=== PATIENT | female | born 1970 | race Caucasian/White ===

== ENCOUNTER 2017-03-25 16:59 | Emergency (ER) | payer OTHER ==
[~2017-03-25] VITALS: Ht 160 cm; Wt 77.7 kg
[~2017-03-25 16:59] MED LIST: CLOP75TA14 PO
[2017-03-25 17:13] VITALS: BP 164/92; PULSE 64; RESP 15; O2SAT 100
[2017-03-25 17:40] VITALS: BP 135/83; PULSE 62; RESP 15; O2SAT 97
--- NOTE | 2017-03-25 17:40 | DRSVH ---
PROCEDURE: CT BRAIN TPA INDICATIONS: Stroke TECHNIQUE: Noncontrast 4.5 mm thick angled axial sections acquired from the foramen magnum to the vertex, with c oronal reformats. COMPARISON: [facility], CT, BRAIN W/O CONTRAST, 11/19/2012, 16:40. FINDINGS: Image quality: Excellent. CSF spaces: Basal cisterns are patent. No extra-axial fluid collections. Ventricles are normal in size and shape. Brain: No midline shift. No intracranial masses or hemorrhage. Richards-white matter interface is norm al. Skull and face: Calvarium and visualized facial bones are intact, without suspicious lesions. Sinuses: Visualized sinuses and mastoids are clear. IMPRESSION: No acute intracranial findings. This was discussed with Dr. Dent at 5:38 PM on 03/25/17. This study fulfills neurological imaging criteria for inclusion or exclusion of acute stroke therapie s based on available published neurological imaging guidelines. Dictated by: Jackelin Kumar M.D. on 03/25/2017 at 17:38 Approved by: Jackelin Kumar M.D. on 03/25/2017 at 17:39
[2017-03-25 17:46] LABS: BASOPHILS % (AUTO) 0.3 % (0-3); EOSINOPHILS % (AUTO) 0.6 % (0-5); MONOCYTES % (AUTO) 8.7 % (4-12); Mean Corpuscular Volume 91.9 fL (81-100); NEUTROPHILS % (AUTO) 66.1 % (40-74); Platelet Count 352 bil/L (150-400)
--- NOTE | 2017-03-25 18:02 | ED.REPORT ---
HPI-Stroke / CVA Mar 25, 2017 ED Provider: Aries Dent MD Pt is a 46 year old female with a history of TIA on Plavix who presents to the ED complaining of facial numbness onset 30 minutes prior to arrival. Pt has had 3 prior TIA's with her last TIA approximately 7-8 years ago. She states that she had abdominal pain for most of the day before her facial numbness started. Pt rates the severity of her pain as 4-5/10. Additional symptoms include heavy non-radiating chest pressure, nausea, left arm numbness, right arm numbness that is baseline from a rotator cuff injury, mild SOB, and mild nausea. Pt denies diaphoresis, lower leg swelling, tongue numbness, hematochezia, hematuria , earache, dental pain, or having any similar symptoms previously. She had a negative MRI and angiography in 2011, and her NIH scale in the ED was zero. Nursing Notes Stated Complaint: CHEST PAIN, NUMBNESS IN FACE Chief Complaint: Neuro Symptoms/ Deficits Nursing Notes Reviewed: Yes (When You Wish, [employer] not reconciled) Allergies: Coded Allergies: Penicillins (Verified Allergy, 01/11/12) Uncoded Allergies: PEANUTS (Allergy, 01/11/12) Scheduled Clopidogrel-Expunged Drug, Do Not Renew! (Plavix-Expunged Drug, Do Not Renew!) 75 Mg Tablet 75 MG PO DAILY (Reported) General Time Seen by Provider: 17:26 Chief Complaint Numbness Facial numbness Hx Obtained From: Patient Arrived By: Walk-in Time last known well This morning Sudden in Onset?: Yes Symptom Duration: Constant Progression Since Onset: Constant Quality: Painful Severity: Current: Mild Severity: Maximum: Mild Recent Healthcare: No recent doctor visit, No recent hospitalization Similar Sx Previous: No Risk Factors NIH Stroke Scale Level of Consciousness: Alert and responsive (0) Ask Month & Age: Both questions right (0) Open/Close Eyes/Hand Clinical Trial Head: Performs both tasks (0) Horizontal EO Movements: None (0) Visual Leiva: No visual loss (0) Facial Palsy: Normal symmetry (0) Right Arm Motor Drift (10s): No drift 10 sec (0) Left Arm Motor Drift (10s): No drift 10 sec (0) Right Leg Motor Drift (5s): No drift 5 sec (0) Left Leg Motor Drift (5s): No drift 5 sec (0) Limb Ataxia FNF/Heel-Joyner: No ataxia (0) Sensation (Arms/Legs/Face): No sensory loss (0) Language Aphasia: No aphasia, normal (0) Dysarthria: No dysarthria, normal (0) Extinction/Inattention: No exctinct/inattent (0) NIHSS Score: 0 Time NIHSS Performed: 17:26 Date NIHSS Performed: Mar 25, 2017 Past Medical History Past Medical History h/o TIA on Plavix Right rotator cuff injury Past Surgical History Reports: , Cholecystectomy Family History Reports: Coronary artery disease, Stroke Smoking History Current Every Day Smoker Social History Other Social History: Good social support Ambulatory Status Independent Review of Systems Review of Systems Note: Left arm numbness Right arm numbness that is baseline from a rotator cuff injury No tongue numbness No dental pain Ears / Nose / Throat: Denies: Earache bilateral Respiratory: Reports: Shortness of breath (mild) Cardiovascular: Reports: Chest pain (heavy non-radiating) GI: Reports: Abdominal pain, Nausea (mild), Denies: Hematochezia Musculoskeletal: Denies: Extremity swelling (lower leg ) Skin: Denies Diaphoresis Complete sys rev & neg: except as marked. Female: Denies: Hematuria Physical Exam Initial Vital Signs Vital Signs (First) Date Time Temp Pulse Resp B/P Pulse Ox O2 Delivery O2 Flow Rate FiO2 03/25/17 17:13 36.3 64 15 164/92 100 Room Air Initial VS: Reviewed Extremities: Vascular intact, Neuro intact, No swelling, No tenderness Skin: Warm, Dry, No cyanosis Psychiatric: Mood/affect normal, Behavior normal, Normal thought content General/Constitutional: Awake, Alert Head / Eyes: Atraumatic, Normocephalic Neck: Supple, Full range of motion Respiratory / Chest: Atraumatic, Breath sounds NL, Breath sounds = bilat, No respiratory distress Cardiovascular: Heart rate NL, Regular rhythm, Heart sounds NL Neurologic: Oriented X3, Speech NL ENT: Atraumatic, Airway patent, Tympanic membs NL Interpretation & Diagnostics Brain MRI: IMPRESSION: 1. No acute intracranial findings. Specifically, no findings to suggest acute or subacute infarct. BRAIN MR ANGIOGRAM: 1. No stenosis, occlusion, or aneurysm. NECK MR ANGIOGRAM: 1. No stenosis, occlusion, or aneurysm. The estimate of stenosis included in the report of the imaging study was calculated using the NASCET method Dictated by: Jackelin Kumar M.D. on 03/25/2017 at 19:55 Approved by: Jackelin Kumar M.D. on 03/25/2017 at 20:02 Lab Results Interpretation Result Diagram: 03/25/17 1740 03/25/17 1740 Test 03/25/17 17:40 White Blood Count 8.8th/mm3 (3.8-10.1) Red Blood Count 4.06mil/mm3 (3.90-5.20) Hemoglobin 12.6g/dL (12.0-15.6) Hematocrit 37.3% (35.0-46.0) Mean Corpuscular Volume 91.9fL (81-100) Mean Corpuscular Hemoglobin 31.0pg (27.0-35.0) Mean Corpuscular Hemoglobin Concent 33.8% (32.0-37.0) Red Cell Distribution Width 12.2% (12.3-15.4) Platelet Count 352bil/L (150-400) Neutrophils (%) (Auto) 66.1% (40-74) Lymphocytes (%) (Auto) 24.1% (14-46) Monocytes (%) (Auto) 8.7% (4-12) Eosinophils (%) (Auto) 0.6% (0-5) Basophils (%) (Auto) 0.3% (0-3) Prothrombin Time 10.1sec (8.1-12.5) Prothromb Time International Ratio 0.95ratio Activated Partial Thromboplast Time 27.4sec (22.8-33.0) Sodium Level 139mEq/L (134-144) Potassium Level 3.8mEq/L (3.5-5.2) Chloride Level 101mEq/L (97-108) Carbon Dioxide Level 25mmol/L (18-29) Blood Urea Nitrogen 12mg/dL (6-24) Creatinine 0.48mg/dL (0.57-1.00) Estimat Glomerular Filtration Rate 199mL/min (>59) Glucose Level 98mg/dL (60-99) Calcium Level 8.3mg/dL (8.5-10.1) Total Bilirubin 0.3mg/dL (0.0-1.2) Aspartate Amino Transf (AST/SGOT) 21U/L (0-50) Alanine Aminotransferase (ALT/SGPT) 20U/L (0-32) Alkaline Phosphatase 84U/L (25-150) Troponin T < 0.010ug/L (0.0-0.011) Total Protein 7.4g/dL (6.4-8.4) Albumin 4.2g/dL (3.4-5.0) Hold Chery Top Tube Received (Received) Lab Results Interpretation: CBC normal CMP normal Troponin negative ECG Interpretation ECG Interpretation: Sinus rhythm, rate 60 Time: 17:39 Interpreted by: ED physician CT Head Interpretation IMPRESSION: No acute intracranial findings. This was discussed with Dr. Dent at 5:38 PM on 03/25/17. This study fulfills neurological imaging criteria for inclusion or exclusion of acute stroke therapies based on available published neurological imaging guidelines. Dictated by: Jackelin Kumar M.D. on 03/25/2017 at 17:38 Approved by: Jackelin Kumar M.D. on 03/25/2017 at 17:39 Study: Head CT no contrast Interpretation / Wet Read by: Interpret - Radiologist Re-Eval/Medical Decision Med Decision/Clinical Course This is a 46-year-old female presents with acute left facial numbness, the brought her in, without elaine weakness. She also has a vague chest discomfort. She has a prior history of TIAs by report, is on Plavix-review the records indicates that was initially delivered from several years ago when she presented with paresthesias. Her workup that time included an MRI/MRA was negative-but it was many years ago. She was designated code stroke on arrival, brought right back. I examine her, her NIH stroke scale is 0. Given the NIH stroke scale is 0, given the absence of hard findings, the patient is not a candidate for TPA and the end as these are contraindication. She has normal sensation the forehead, reports trace paresthesias of the left face. She has no facial droop, or overt findings of a Downey's palsy. Respiratory exam is normal. Contrast head CT was negative. Blood work EKG are normal no evidence of cardiac process. An MRI stroke protocol was obtained, and was negative. Well. At this point with negative imaging and testing about finding indication that the patient requires admission for additional testing. Reassurance provided patient feels better. She's advised continue her clopidogrel. Follow with her PCP. She also endorsing symptoms she is a return emergency department. Source of Hx: Old records Re-Evaluation/Progress #1: Time of Eval: 17:57 Patient Status: Condition improved Re-Evaluation/Progress Note: Patient rechecked. Discussed results of brain CT that were negative, and will wait for brain MRI. Re-Evaluation/Progress #2: Time of Eval: 20:34 Patient Status: Condition improved Re-Evaluation/Progress Note: Patient rechecked. Discussed plan for discharge. Patient understands and agrees with plan. Follow-up and return to ED warnings given. All questions addressed. Consultation : Referral / Consult Name: Jackelin Kumar MD Call Returned at: 17:38 Note: Radiologist, Dr. Kumar, called to say that the patient's CT head was negative. Differential Diagnosis: Negative: Atrial fibrillation, Atypical migraine, Cerebellar hemorrhage, Cerebrovascular accident, Electrolyte disorder, Hepatic encephalopathy, Hyperglycemia, Hypoglycemia, Intoxication, alcohol, Meningitis, Seizure disorder, Sepsis, Subarachnoid hemorrhage, Subdural hemorrhage, Substance abuse disorder, Systemic infection Counseled Regarding: Diagnosis, Lab results, Need for follow-up, When/why to return to ED Patient Discharge & Departure Impression: Primary Impression: Facial numbness Disposition: Home Discharge Condition All VS Reviewed: Yes Condition: Stable Additional Instructions: 1. A dangerous cause of the numbness or chest discomfort was not identified. Your tests in the emergency departemtn were normal. You had a CT scan, and MRI of the brain-neither showed any signs of a stroke, tumor, or other dangerous condition. 2. Your heart tests were normal. 3. Continue your clopidegrel (Plavix) 4. Return if new or worsening symptoms. Referrals: Nichole Mc DO [facility] Portions of this note were transcribed by Nel Torres. I, Dr. Dent, personally performed the history, physical exam and medical decision-making; I reviewed and confirmed the accuracy of the information in the transcribed note. Aries Dent MD Mar 25, 2017 18:02 Nel Torres Mar 25, 2017 18:06
[2017-03-25 18:03] LABS: INR 0.95 ratio
[2017-03-25 18:20] VITALS: BP 128/83; PULSE 64; RESP 16; O2SAT 98
[2017-03-25 18:30] LABS: TROPONIN T < 0.010 ug/L (0.0-0.011)
[2017-03-25 19:41] VITALS: BP 134/78; PULSE 61; RESP 17; O2SAT 99
--- NOTE | 2017-03-25 20:04 | DRSVH ---
PROCEDURE: MRI STROKE PROTOCOL ([id number]) Pre- and post-contrast brain MRI, non-contrast brain MR angiogram, pre- and postcontrast neck MR minerva ogram INDICATIONS: L facial arm numbness TECHNIQUE: Brain: Noncontrast axial T1 spin echo, axial T2 fast spin echo, sagittal and axial FLAIR, coronal T2 fast spin echo, axial gradient echo, axial diffusion and ADC through the brain. After the administr ation of contrast, axial 3D VIBE of the cranial vasculature and brain. Brain MRA: Non-contrast 3-D time of flight MR angiogram, with multiple asvxwbe-hipumbjsz-cpivptljll (MIP) reformats performed. Neck MRA: Axial and sagittal TruFISP through the neck. Coronal dynamic MR angiogram during administ ration of contrast in the arterial and venous phases, with 3-dimenstional zazfgjr-pflhvulov-ejamaifgt n (MIP) reformats constructed from subtraction images. COMPARISON: [facility], CT, CT BRAIN TPA, 03/25/2017, 17:32. FINDINGS: Image quality: Excellent. BRAIN: CSF spaces: Ventricles are normal in size and shape. Basal cisterns are patent. No extra-axial flu id collections. Brain: No intracranial bleeds or mass effects. Richards-white matter interface is normal. Diffusion we ighted images show no acute ischemic insults. Brainstem appears normal. Normal intravascular flow v oids are present. No abnormal intracranial enhancement. Skull and face: Calvarial marrow signal is normal. Orbits appear normal. Sinuses: Sinuses and mastoids are clear. BRAIN MR ANGIOGRAM: Anterior circulation: Intracranial internal carotid arteries are normal in size and enhancement. Th e flow within the paired anterior cerebral arteries is normal and symmetric. The flow within the mid dle cerebral arteries is normal and symmetric. The anterior communicating artery is seen. No stenos es, occlusions, or aneurysms. Posterior circulation: The visualized portions of the vertebral arteries demonstrate normal caliber, and join to form a normal appearing basilar artery. The flow within the posterior cerebral arteries is normal and symmetric. No stenoses, occlusions, or aneurysms. NECK MR ANGIOGRAM: Carotids: Great vessels demonstrate a conventional anatomy as they arise from the aortic arch. The origins of the common carotid arteries appear patent. The calibers and courses of both common caroti d arteries are normal. The bifurcation regions appear normal bilaterally. The internal carotid pura eldon demonstrate normal course and caliber. Posterior circulation: The origins of the vertebral arteries appear patent. More superior portions of both vertebral arteries demonstrate normal course and caliber, and join to form a normal appearing basilar artery. Miscellaneous: Subclavian arteries appear patent. Pre-contrast images through the neck show no soft tissue abnormalities. IMPRESSION: BRAIN MRI: 1. No acute intracranial findings. Specifically, no findings to suggest acute or subacute infarct. BRAIN MR ANGIOGRAM: 1. No stenosis, occlusion, or aneurysm. NECK MR ANGIOGRAM: 1. No stenosis, occlusion, or aneurysm. The estimate of stenosis included in the report of the imaging study was calculated using the NASCET method Dictated by: Jackelin Kumar M.D. on 03/25/2017 at 19:55 Approved by: Jackelin Kumar M.D. on 03/25/2017 at 20:02
[2017-03-25 20:51] VITALS: BP 129/79; PULSE 66; RESP 20; O2SAT 97
[2017-03-25 20:55] VITALS: BP 129/79; PULSE 66; RESP 20; O2SAT 97
== END 2017-03-25 20:55 | disposition home or self-care (01) ==
LOC: SED 16:59
DX: R20.0 Anesthesia of skin (principal); R07.89 Other chest pain; R11.0 Nausea; F17.200 Nicotine dependence, unspecified, uncomplicated; Z88.0 Allergy status to penicillin; Z86.73 Personal history of transient ischemic attack (TIA), and cerebral infarction without residual deficits
CPT/HCPCS: 36415; 70450; 70549; 70553; 80053; 84484; 85025; 85610; 85730; 93005; 99285; A9585